=== PATIENT | male | born 1995 | race Caucasian/White ===

== ENCOUNTER 2017-02-08 09:11 | Emergency (ER) | payer OTHER ==
[~2017-02-08] VITALS: Ht 160 cm; Wt 69.4 kg
[2017-02-08 09:27] VITALS: BP 139/73
--- NOTE | 2017-02-08 09:32 | NUR ---
PT AMBULATED TO BED 3.
--- NOTE | 2017-02-08 09:34 | NUR ---
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 WILL CONTINUE TO MONITOR.
--- NOTE | 2017-02-08 09:36 | NUR ---
ER MD DR. ALFREDO EVALUATING PT AT BEDSIDE.
[2017-02-08] MEDS ORDERED: DEXAMETHASONE 10 MG/ML VIAL IM ONE (09:45)
[2017-02-08] MEDS ORDERED: CLINDAMYCIN 600 MG/4 ML VIAL IM ONE (09:45)
[2017-02-08] MEDS ORDERED: KETOROLAC 60 MG/2 ML VIAL IM ONE (09:45)
[2017-02-08 10:58] VITALS: BP 127/65
--- NOTE | 2017-02-08 10:58 | NUR ---
Patient discharged with v/s stable. Written and verbal after care instructions given and explained. Patient alert, oriented and verbalized understanding of instructions. Ambulatory with steady gait. All questions addressed prior to discharge. ID band removed. Patient advised to follow up with PMD. Rx of PREDNISONE 20 MG TAB & CLINDAMYCIN HYDROCHLORIDE 300 MG CAP given. Patient educated on indication of medication including possible reaction and side effects. Opportunity to ask questions provided and answered.
== END 2017-02-08 10:58 | disposition home or self-care (01) ==
LOC: MED 09:11
DX: L02.01 Cutaneous abscess of face (principal); L70.0 Acne vulgaris
CPT/HCPCS: 96372; 99284; J1100; J1885; J3490

== ENCOUNTER 2018-05-31 09:15 | Emergency (ER) | payer OTHER ==
[~2018-05-31] VITALS: Ht 160 cm; Wt 64.4 kg
[2018-05-31 09:26] VITALS: BP 135/69
--- NOTE | 2018-05-31 09:29 | NUR ---
Patient ambulated to bed 4 at this time.
--- NOTE | 2018-05-31 09:33 | NUR ---
bib self with c/o 12/17 1st digit of right hand x 6 days after smashing it in between car door. SKIN AROUND RIGHT 1ST FINGERNAIL REDNESS & SWELLING& OLD BLOOD UNDER RIGHT 1ST FINGERNAIL.
--- NOTE | 2018-05-31 09:38 | NUR ---
X RAY AT BEDSIDE.
--- NOTE | 2018-05-31 10:46 | NUR ---
Patient being evaluated by physician at bedside.
[2018-05-31 11:00] VITALS: BP 119/67
== END 2018-05-31 11:00 | disposition home or self-care (01) ==
LOC: MED 09:15
DX: S60.111A Contusion of right thumb with damage to nail, initial encounter (principal); W23.0XXA Caught, crushed, jammed, or pinched between moving objects, initial encounter; Y93.89 Activity, other specified; Y92.89 Other specified places as the place of occurrence of the external cause; Y99.8 Other external cause status
CPT/HCPCS: 29125; 73130; 99283; Q0092